=== PATIENT | female | born 1990 | race Caucasian/White ===

== ENCOUNTER 2022-05-14 08:54 | Outpatient (CLI) | payer OTHER, SELFPAY ==
[2022-05-14 14:22] LABS: Albumin* 4.8 g/dL (3.3-5.0); Chloride* 106 mmol/L (96-114)
[2022-05-14 14:23] LABS: Potassium* 4.3 mmol/L (3.6-5.1); Sodium* 140 mmol/L (135-149)
[2022-05-14 14:25] LABS: Aspartate Amino Transferase* 28 U/L (12-35); Bilirubin Total* 0.9 mg/dL (0.1-1.5); Blood Urea Nitrogen* 12 mg/dL (5-24); Carbon Dioxide* 27 mmol/L (20-32); Cholesterol* 195 mg/dL (90-199); Creatinine* 0.6 mg/dL (0.5-1.5); Estimated Glomerular Filt Rate 122 ml/min; Glucose* 91 mg/dL (60-115); Total Protein* 7.5 g/dL (6.0-8.3)
[2022-05-14 14:26] LABS: Alanine Aminotransferase* 25 U/L (4-35); Alkaline Phosphatase* 70 U/L (40-150); Calcium* 9.2 mg/dL (8.4-10.6); HDL Cholesterol* 49 mg/dL (>=50); LDL Cholesterol Calculated 128 mg/dL (<100); Triglycerides* 89 mg/dL (40-149)
[2022-05-14 14:51] LABS: TSH With Reflex to FT4* 0.753 uIU/mL (0.270-4.200)
[2022-05-15 16:36] LABS: Thyroid Peroxidase (TPO) Ab 0.4 IU/mL (0.0-9.0)
== END 2022-05-14 08:55 | disposition home or self-care (01) ==
PROVIDERS: PCP Family Medicine; Visit Provider Family Medicine
DX: E66.9 Obesity, unspecified (principal); R53.83 Other fatigue; E04.9 Nontoxic goiter, unspecified; R00.2 Palpitations; Z13.6 Encounter for screening for cardiovascular disorders; Z13.1 Encounter for screening for diabetes mellitus
CPT/HCPCS: 80053; 80061; 84443; 86376

== ENCOUNTER 2023-01-30 13:12 | Outpatient (CLI) | payer OTHER, SELFPAY | END 2023-01-30 13:13 | disposition home or self-care (01) | LOC: NFLDREF 02-01 17:19 | PROVIDERS: PCP Family Medicine; Referring Provider Family Medicine; Visit Provider Nurse Practitioner Family | DX: R30.0 Dysuria (principal); N39.0 Urinary tract infection, site not specified | CPT/HCPCS: 87086 ==

== ENCOUNTER 2023-05-28 14:06 | Outpatient (CLI) | payer OTHER, SELFPAY | END 2023-05-28 14:07 | disposition home or self-care (01) | PROVIDERS: PCP Family Medicine; Visit Provider Family Medicine | DX: Z13.220 Encounter for screening for lipoid disorders (principal); R53.83 Other fatigue; Z13.228 Encounter for screening for other metabolic disorders | CPT/HCPCS: 80053; 80061; 84443 ==

== ENCOUNTER 2023-06-04 07:01 | Outpatient (CLI) | payer OTHER, SELFPAY ==
--- NOTE | 2023-06-04 07:15 | CRLHL7_ITS ---
For Patients: As a result of the Century Cures Act, medical imaging exams and procedure reports are released immediately into your electronic medical record. You may view this report before your referring provider. If you have questions, please contact your health care provider. INDICATION: Nontoxic goiter COMPARISON: none TECHNIQUE: Silva scale and color Doppler images were acquired of the thyroid gland. FINDINGS: The thyroid gland demonstrates normal uniform echogenicity and has a smooth outer contour. The right lobe measures 6.2 x 2.1 x 2.5 cm and the left lobe measures 7.0 x 1.9 x 2.5 cm in size. Isthmus measures 4 mm. Cystic nodule right upper pole 9 x 5 x 7 mm. Cystic nodule mid portion on the left measuring 8 x 6 x 6 mm. Other smaller cysts are present elsewhere. The color Doppler images demonstrate mildly increased vascularity. There is no evidence of cervical lymphadenopathy or parathyroid mass. IMPRESSION: Mildly heterogeneous and slightly hypervascular thyroid without suspicious nodule. Dictated by Jj Kennedy MD @ 06/04/2023 9:23:17 AM (Electronically Signed)
== END 2023-06-04 07:02 | disposition home or self-care (01) ==
LOC: US 07:02
PROVIDERS: PCP Family Medicine; Visit Provider Family Medicine
DX: E04.9 Nontoxic goiter, unspecified (principal)
CPT/HCPCS: 76536

== ENCOUNTER 2024-02-25 07:26 | Outpatient (CLI) | payer OTHER, SELFPAY | END 2024-02-25 07:27 | disposition home or self-care (01) | LOC: NFLDREF 02-26 19:06 | PROVIDERS: PCP Family Medicine; Referring Provider Family Medicine; Visit Provider Family Medicine | DX: R30.0 Dysuria (principal); B96.20 Unspecified Escherichia coli [E. coli] as the cause of diseases classified elsewhere | CPT/HCPCS: 87086; 87186 ==

== ENCOUNTER 2024-12-13 16:22 | Outpatient (CLI) | payer OTHER, SELFPAY | END 2024-12-13 16:23 | disposition home or self-care (01) | LOC: NFLDREF 12-16 10:41 | PROVIDERS: Visit Provider Physician Assistant | DX: R30.0 Dysuria (principal); N39.0 Urinary tract infection, site not specified | CPT/HCPCS: 87086 ==